=== PATIENT | male | born 1990 | race African-American/Black ===

== ENCOUNTER 2016-11-09 16:51 | Emergency (ER) | payer SELFPAY ==
[2016-11-09] MEDS ORDERED: LIDOCAINE 1% INJ-PF (10 MG/ML) 30 ML SDV INJ ONE (18:27)
[2016-11-09] MEDS ORDERED: CEFTRIAXONE INJ 250 MG VIAL IM ONE (18:27)
[2016-11-09] MEDS ORDERED: AZITHROMYCIN 250 MG TABLET PO ONE (18:27)
--- NOTE | 2016-11-09 18:31 | ER Document Report ---
HPI - HPI Patient complains to provider of: Gonorrhea exposure Onset: Yesterday Onset/Duration: Gradual Quality of pain: No pain Pain Level: Denies Context: Patient states that his girlfriend was here yesterday and was told that she had gonorrhea. Patient is here for treatment of gonorrhea. Patient denies any penile drainage or discharge. Patient denies any dysuria or urinary symptoms. Patient denies any abnormal skin lesions. Associated Symptoms: None. denies: Fever, Vomiting Exacerbated by: Denies Similar symptoms previously: No Recently seen / treated by doctor: No - ROS ROS below otherwise negative: Yes Systems Reviewed and Negative: Yes All other systems reviewed and negative - CONSTITUTIONAL Constitutional: DENIES: Fever - NEURO Neurology: DENIES: Weakness - RESPIRATORY Respiratory: DENIES: Trouble Breathing, Coughing - GASTROINTESTINAL Gastrointestinal: DENIES: Abdominal Pain - URINARY Urinary: DENIES: Dysuria, Urgency - MUSCULOSKELETAL Musculoskeletal: DENIES: Back Pain - DERM Skin Color: Normal Skin Problems: None Past Medical History - General Information source: Patient - Social History Smoking Status: Current Some Day Smoker Frequency of alcohol use: Occasional Drug Abuse: None Occupation: sales Lives with: Spouse/Significant other Family History: Reviewed & Not Pertinent Patient has suicidal ideation: No Patient has homicidal ideation: No - Medical History Medical History: Negative Renal/ Medical History: Denies: Hx Peritoneal Dialysis Surgical Hx: Negative - Immunizations Immunizations up to date: Yes Vertical Provider Document - CONSTITUTIONAL Agree With Documented VS: Yes Exam Limitations: No Limitations General Appearance: WD/WN, No Apparent Distress - INFECTION CONTROL TRAVEL OUTSIDE OF THE [place] IN LAST 30 DAYS: No - HEENT HEENT: Atraumatic, Normocephalic - NECK Neck: Normal Inspection, Supple - RESPIRATORY Respiratory: Breath Sounds Normal, No Respiratory Distress O2 Sat by Pulse Oximetry: 99 - CARDIOVASCULAR Cardiovascular: Regular Rate, Regular Rhythm, No Murmur - BACK Back: Normal Inspection. negative: CVA Tenderness-Right, CVA Tenderness-Left - MUSCULOSKELETAL/EXTREMETIES Musculoskeletal/Extremeties: GOLD WALTERS - NEURO Level of Consciousness: Awake, Alert, Appropriate Motor/Sensory: No Motor Deficit - DERM Integumentary: Warm, Dry, No Rash Course - Re-evaluation Re-evalutation: 11/09/16 18:28 Patient advised that any exposure to STD increases the possibility of exposure to other STDs including syphilis as well as HIV. Patient encouraged to follow- up at the health department for further testing to rule out other STDs. Patient is requesting treatment for gonorrhea as this is what his girlfriend tested positive for yesterday. - Vital Signs Vital signs: Temp Pulse Resp BP Pulse Ox 97.6 F 101 H 20 134/76 H 99 11/09/16 17:05 11/09/16 17:05 11/09/16 17:05 11/09/16 17:05 11/09/16 17:05 Discharge - Discharge Clinical Impression: Exposure to gonorrhea Condition: Stable Disposition: HOME, SELF-CARE Instructions: Gonorrhea ([facility]), Rocephin ([facility]), Azithromycin ([facility]) Additional Instructions: Return as needed for any new or worsening symptoms Follow-up with the health department or your primary doctor for further evaluation, including testing for HIV [facility] - Follow up tomorrow
[2016-11-09 19:04] VITALS: BP 128/71
== END 2016-11-09 19:03 | disposition home or self-care (01) ==
LOC: ER 16:51
DX: Z20.2 Contact with and (suspected) exposure to infections with a predominantly sexual mode of transmission (principal); F17.200 Nicotine dependence, unspecified, uncomplicated
CPT/HCPCS: 99283; 96372; J3490; J0696